=== PATIENT | male | born 1950 ===

== ENCOUNTER 2017-01-02 10:23 | Emergency (ER) ==
[2017-01-02 10:32] VITALS: BP 134/74
[2017-01-02] MEDS ORDERED: ROBAXIN PO ONE (11:37)
[2017-01-02] MEDS ORDERED: DECADRON IM ONE (11:37)
--- NOTE | 2017-01-02 11:38 | PROVIDER DOCUMENTATION ---
HPI-Musculoskeletal Pain/Inj - GENERAL Chief Complaint: Back Pain Stated Complaint: BACK PAIN Time Seen by Provider: 01/02/17 10:46 Source: patient - HX OF PRESENT ILLNESS-MUSKULOSKELTAL Nature of Presenting Problem: 66 y/o M c/o bilat back pain with radiation to LLE x 1 week. Pt states has had this problem before, but had an epidural 10 years ago, and the problem hasn't come back until now. Denies any injury. Review of Systems - Adult - REVIEW OF SYSTEMS - ADULT Constitutional: reports: no symptoms reported. denies: chills, fever Eyes: reports: no symptoms reported. denies: blurred vision, double vision Ears, Nose, Mouth & Throat: reports: no symptoms reported. denies: ear pain, nose pain Cardiovascular: reports: no symptoms reported. denies: chest pain, palpitations Respiratory: reports: no symptoms reported. denies: dyspnea on exertion, shortness of breath Gastrointestinal: reports: no symptoms reported. denies: nausea, vomiting Genitourinary: reports: no symptoms reported. denies: dysuria, frequency Musculoskeletal: reports: see HPI, back pain. denies: joint pain, joint swelling Integumentary: reports: no symptoms reported. denies: nail changes, rash Neurological: reports: no symptoms reported. denies: numbness, paresthesia Psychiatric: reports: no symptoms reported Endocrine: reports: no symptoms reported. denies: cold intolerance, heat intolerance Hematologic/Lymphatic: reports: no symptoms reported. denies: easy bruising, prolonged bleeding Allergic/Immunologic: reports: no symptoms reported All Other Systems: Reviewed and Negative Past History - Adult - PAST MEDICAL HISTORY-ADULT Review of Records: reports: Nursing Assessment Review, Medications Reviewed Major Childhood Illnesses: reports: denies history Cardiovascular: reports: CAD, HTN, hyperlipidemia, ND, other (carotid dz) Respiratory: reports: denies history Gastrointestinal: reports: denies history Obstetrical/Gynecological: reports: denies history Genitourinary: reports: denies history Musculoskeletal: reports: denies history Neurological: reports: denies history Endocrine/Immune: reports: denies history Other Conditions: reports: denies history - PRIOR SURGERIES/PROCEDURES Surgical/Procedure History: reports: cardiac stent (2 weeks ago), other ( carotid endarterectomy) - IMMUNIZATION STATUS Childhood Immunizations: See Nurse Assessment Flu Vaccine: See Nurse Assessment - SOCIAL HISTORY Living Situation: family Physical Exam-Injury Related - Physical Exam-Injury Related Initial Vital Signs Reviewed: Yes General Appearance: alert, mild distress Eyes: pink conjunctivae Head, Ears, Nose, Mouth & Throat: normocephalic/atraumatic, moist mucous membranes Neck: normal inspection Respiratory: no respiratory distress Cardiovascular: normal peripheral pulses, regular rate, rhythm Peripheral Pulses: dorsalis-pedis (R): 1+, dorsalis-pedis (L): 1+ Back Exam: normal inspection, no CVA tenderness, no vertebral tenderness, other (TTP bilat low back) Extremity: normal range of motion, normal gait, normal inspection, normal capillary refill, other (+ straight leg raise on L). negative: abnormal NV exam , pulse deficit Integumentary: normal color, warm/dry, blanching Neurologic: negative: aphasia Psych/Mental Status: normal mood/affect, normal thought content, normal thought process, oriented x 3 Progress - PLAN OF CARE/RESULTS Progress/Plan/Lab Results: Orders Category Date Time Status LUMBAR SPINE [RAD] Stat Exams 01/02/17 11:29 Completed Dexamethasone [Decadron] Med 01/02/17 11:37 Discontinued 4 mg IM NOW ONE Methocarbamol [Robaxin] Med 01/02/17 11:37 Discontinued 1,000 mg PO NOW ONE Vital Signs Temp Pulse Resp BP Pulse Ox 01/02/17 10:30 98.3 F 62 16 134/74 100 No Known Allergies Allergy (Verified 01/02/17 10:49) Metoprolol [Lopressor] 25 mg PO DAILY 02/10/15 Prasugrel HCl [Effient] 5 mg PO DAILY 02/10/15 Acetaminophen [Tylenol] 500 mg PO Q6H PRN PRN #30 tablet 01/02/17 Gabapentin 300 mg PO BID 01/02/17 Methocarbamol [Robaxin] 500 mg PO BID #30 tablet 01/02/17 Discussed medication use and f/u with pt. - XRAY 1 XRAY Study: Lumbar Spine Impression: See EMR Report (kyphoscoliosis, DDD, no fx or subluxation -per Dr. López) Departure - Departure Time of Disposition Order: 11:52 DIAGNOSIS: Kyphoscoliosis, DDD (degenerative disc disease), lumbar Disposition: HOME 01 Certified Medical Emergency: Emergent Condition: Stable Additional Instructions: Heat of ice as needed to the area. Follow up with specialist for further management and evaluation. Take medications as directed. ED Follow Up Instructions: You have been treated by a care provider in the Emergency Department. These instructions are being provided to you so you can have an understanding of how to care for yourself upon discharge. Upon discharge from the Emergency Department, you are responsible for making arrangements for follow-up care by a physician of your choice. Take all prescribed medications as directed. Return to the Emergency Department immediately for any new or worsening symptoms. You may call the Physician Referral phone number at [phone] to obtain a list of Physicians who are taking new patients. Prescriptions: Methocarbamol [Robaxin] 500 mg PO BID #30 tablet Acetaminophen [Tylenol] 500 mg PO Q6H PRN PRN #30 tablet PRN Reason: Pain Referrals: oRberto Pappas MD [Primary Care Provider] - Yevgeniy Fajardo MD [STAFF PHYSICIAN] - Instructions: Back Pain, Adult, Degenerative Disk Disease Attestation - Physician/ OUSMANE Attestation Patient care was provided by Advanced Practice Provider:: Yes Advanced Practice Provider:: Yuliana Price Advanced Practice Provider documentation review:: The Mid-level provider documentation, treatment plan and medical decision making was reviewed by the physician who agrees with all treatment and medical decision making by the MLP.
--- NOTE | 2017-01-02 13:05 | Diag Imaging Result Document ---
PROCEDURE NAME: LUMBAR SPINE - 01/02/2017 LUMBOSACRAL SPINE SERIES WITH OBLIQUES, 6 VIEWS: FINDINGS: The pedicles are intact. There is some rotoscoliosis of the lumbar spine with convexity to the left. There is anterior osteophyte formation at L1-2, L2-3, L3-4, and L4-5, and there is vacuum disk phenomenon at L4-5. There is also some degree of kyphosis around the level of the L1-2. No evidence of fracture or subluxation is present. IMPRESSION: Scoliosis and kyphosis with degenerative disk changes as described. No evidence of acute bony disease.
== END 2017-01-02 12:09 | disposition home or self-care (01) ==
LOC: ED 10:23
DX: M51.36 Other intervertebral disc degeneration, lumbar region (principal); M41.9 Scoliosis, unspecified; M54.9 Dorsalgia, unspecified; M79.605 Pain in left leg; I25.10 Atherosclerotic heart disease of native coronary artery without angina pectoris; I10 Essential (primary) hypertension; E78.5 Hyperlipidemia, unspecified; I25.2 Old myocardial infarction; Z79.899 Other long term (current) drug therapy; Z95.5 Presence of coronary angioplasty implant and graft
CPT/HCPCS: 72110; 96372; J1100